=== PATIENT | male | born 1970 | race Caucasian/White ===

== ENCOUNTER → 2025-03-11 12:03 | Outpatient (CLI) | payer OTHER, SELFPAY ==
--- NOTE | 2025-03-11 12:11 | DI.RAD.S_ITS ---
PROCEDURE: XR LUMBAR SPINE MIN 4V INDICATIONS: POST LAMINECTOMY SYNDROME TECHNIQUE: 5 views of the lumbar spine were acquired, including bilateral oblique views. COMPARISON: None. FINDINGS: Bones: 5 nonrib-bearing vertebrae are present. Transitional vertebral anatomy with partial lumbarization of S1. Moderate L5-S1 disc height loss with adjacent endplate sclerosis and anterior osteophytosis. There is normal bony alignment. No vertebral body compression fractures. No suspicious bony lesions. Soft tissues: Overlying bowel gas pattern is normal. No suspicious soft tissue calcifications. Oblique images: No pars defects. IMPRESSION: Mild degenerative change of the L5-S1 level without evidence of acute bony abnormality. Dictated by: Sterling Richmond M.D. on 03/13/2025 at 10:20 Approved by: Sterling Richmond M.D. on 03/13/2025 at 10:21
== END ==
LOC: RAD 12:09
PROVIDERS: Referring Provider Physician Assistant; Visit Provider Physician Assistant
DX: M96.1 Postlaminectomy syndrome, not elsewhere classified (principal); M47.817 Spondylosis without myelopathy or radiculopathy, lumbosacral region
CPT/HCPCS: 72110

== ENCOUNTER → 2025-04-02 07:23 | Outpatient (CLI) | payer OTHER, SELFPAY ==
--- NOTE | 2025-04-02 07:24 | DI.MRI.S_ITS ---
PROCEDURE: MR LUMBAR SPINE WO CON INDICATIONS: Chronic Low Back Pain TECHNIQUE: Noncontrast sagittal T1 spin echo and T2 fast echo, sagittal STIR, and T2 fast spin echo through the lumbar spine. In cases with scoliosis, additional coronal T2 fast spin echo may be performed. COMPARISON: Outside Film, MR, MR LUMBAR SPINE WITHOUT CONTRAST, 06/04/2023, 8:12. [facility], CR, XR LUMBAR SPINE MIN 4V, 03/11/2025, 12:12. FINDINGS: Image quality: Excellent. Alignment and Curvature: There is normal bony alignment. Bone Marrow: Marrow is of normal overall signal. No acute vertebral body compression fractures. Spinal Cord: Conus medullaris terminates at the L1 level. Visualized cord demonstrates normal signal and size. Paraspinous Soft Tissues: No paravertebral masses. This patient has transitional lumbar anatomy. For the purposes of this examination, the level with the last well-developed disc space is considered to be L5-S1. By this numbering scheme, the L5 level is transitional and is partially sacralized on the left. This numbering scheme is chosen to remain consistent with the prior 2022 report. T12-L1: Normal appearance. L1-L2: Normal appearance. L2-L3: The disc height and disk signal are well-preserved. Mild generalized disc bulge is seen. Mild bilateral neural foraminal narrowing is seen. No significant central canal narrowing is seen. There is slight progression of degenerative change compared to the prior. L3-L4: The disc height and disk signal are relatively well-preserved. Moderate generalized disc bulge is seen. There is a superimposed central disc protrusion. There is an annular fissure seen posteriorly and on the left, as on series 5, image 26 and on series 4, image 14. Mild facet joint hypertrophy is seen. Moderate bilateral neural foraminal narrowing is seen. Moderate central canal narrowing is seen. When comparison is made with the prior images, these findings are similar. L4-L5: Moderate loss of disc height is seen. Loss of disc signal is seen. Moderate generalized disc bulge is seen. There is a central/left disc protrusion. Prior postoperative change can be seen, with right hemilaminectomy. Mild to moderate facet hypertrophy is seen. There is moderate right-sided and at least moderate left- sided neural foraminal narrowing. There is a degree of compression seen upon the exiting left L4 nerve root. No significant central canal narrowing is seen. This level is improved compared to the prior study. L5-S1: There is a transitional disc seen at this level. No significant abnormality is seen. IMPRESSION: Degenerative changes are seen, which are worst at the L4-L5 level. There has been postoperative change at L4-L5, with improvement compared to 2022. 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 Dictated by: Collins Villalba M.D. on 04/02/2025 at 10:32 Approved by: Collins Villalba M.D. on 04/02/2025 at 10:38
== END ==
LOC: MRI 07:23
PROVIDERS: Referring Provider Student in an Organized Health Care Education/Training Program; Visit Provider Student in an Organized Health Care Education/Training Program
DX: M54.50 Low back pain, unspecified (principal); M51.369 Other intervertebral disc degeneration, lumbar region without mention of lumbar back pain or lower extremity pain; M48.061 Spinal stenosis, lumbar region without neurogenic claudication; M47.816 Spondylosis without myelopathy or radiculopathy, lumbar region; M47.817 Spondylosis without myelopathy or radiculopathy, lumbosacral region; M43.27 Fusion of spine, lumbosacral region
CPT/HCPCS: 72148

== ENCOUNTER → 2025-07-12 11:45 | Outpatient (CLI) | payer OTHER, SELFPAY ==
[2025-07-12 13:04] LABS: Add Manual Diff / Slide Review NO; Hematocrit 41.0 % (41-53); Hemoglobin 14.2 g/dL (13.5-17.5); Lymphocytes Absolute Auto 1400 /uL (1100-4500); Mean Corpuscular HGB Conc 34.7 % (30-36); Mean Corpuscular Hemoglobin 31.0 PG (26-34); Mean Corpuscular Volume 89.3 fL (80-100); Platelet Count 202 X10^3/uL (150-400)
== END ==
PROVIDERS: Referring Provider Chiropractor; Visit Provider Chiropractor
DX: D50.9 Iron deficiency anemia, unspecified (principal)
CPT/HCPCS: 36415; 85025